=== PATIENT | female | born 1965 | race American Indian/Alaskan Native ===

== ENCOUNTER 2017-01-04 15:54 | Emergency (ER) | payer OTHER ==
[2017-01-04 16:30] VITALS: BP 127/93
--- NOTE | 2017-01-04 16:52 | XRay Report ---
RIGHT ANKLE RADIOGRAPHS INDICATION: Fall, right ankle injury. Patient rolled right ankle 3 days ago. COMPARISON: None similar. FINDINGS: AP, lateral and oblique right ankle radiographs demonstrate distal fibular fracture(s) approximately 2.6 cm proximal to its tip with cortical offset of 2-3 mm and possible extending to the distal tibiofibular joint. Mild to moderate ankle soft tissue swelling, lateral more than medial. Approximately 4 mm curvilinear density also incidentally seen inferior to the medial malleolus, presumed old posttraumatic or degenerative. Preserved ankle mortise and talar dome contour. Approximately 8mm prominent posterior talar process or ossicle. CONCLUSION: Right distal fibular fracture and ankle soft tissue swelling with few other findings, as above. Please correlate. Thank you for the opportunity to participate in this patient's care.
[2017-01-04] MEDS ORDERED: TORADOL IM ONE (17:06)
--- NOTE | 2017-01-04 17:13 | Emergency Department Report ---
HPI - General Chief Complaint: Extremity Injury, Lower Time Seen by Provider: 01/04/17 17:03 - HPI HPI: Patient is a 51-year-old female presents to ED complaining of right ankle pain 3 days. Patient states she was walking down the heel on Wednesday when she slipped and twisted her right ankle. Patient stated pain is gone progressively worse since Wednesday. Patient states difficulty and pain with weightbearing on the right leg. Patient denies fever/chills/nausea/vomiting since abdominal pain status post loss of sensation and leg/chest pain/calf tenderness ED Past Medical Hx - Past Medical History Previous Medical History?: Yes Hx Hypertension: Yes Hx Congestive Heart Failure: No Hx Diabetes: No Hx GERD: Yes Hx Asthma: No Hx COPD: No Additional medical history: depression. anxiety - Surgical History Past Surgical History?: Yes Additional Surgical History: bladder mesh 2011. right foot- bunyon removed - Social History Smoking Status: Never Smoker Substance Use Type: Non Opiate Pain, Prescribed - Medications Home Medications: Home Medications Medication Instructions Recorded Confirmed Last Taken Type Omeprazole [PriLOSEC] 1 tab PO QDAY 12/24/13 12/24/13 12/23/13 14:00 History amLODIPine [Norvasc] 1 tab PO QDAY 12/24/13 12/24/13 12/23/13 14:00 History Ciprofloxacin HCl [Ciprofloxacin 500 mg PO Q12HR #14 tab 10/31/15 Unknown Rx TAB] HYDROcodone/APAP 5-325 [Jackson 1 each PO Q6HR PRN #20 tablet 01/04/17 Unknown Rx 5/325] Ibuprofen [Motrin 800 MG tab] 800 mg PO Q8HR PRN #30 tablet 01/04/17 Unknown Rx ED Review of Systems ROS: Stated complaint: FALL/RT FOOT PAIN Other details as noted in HPI Constitutional: denies: chills, fever Eyes: denies: eye pain, eye discharge, vision change ENT: denies: ear pain, throat pain Respiratory: denies: cough, shortness of breath, wheezing Cardiovascular: denies: chest pain, palpitations Endocrine: no symptoms reported Gastrointestinal: denies: abdominal pain, nausea, diarrhea Genitourinary: denies: urgency, dysuria, discharge Musculoskeletal: arthralgia, myalgia. denies: back pain, joint swelling Skin: denies: rash, lesions Neurological: denies: headache, weakness, numbness, paresthesias, confusion Psychiatric: denies: anxiety, depression Hematological/Lymphatic: denies: easy bleeding, easy bruising Physical Exam - Physical Exam Vital Signs: Vital Signs 01/04/17 16:27 Temperature 98.3 F Pulse Rate 69 Respiratory 18 Rate Blood Pressure 127/93 O2 Sat by Pulse 100 Oximetry Physical Exam: GENERAL: Alert and oriented x3, no apparent distress, Normal Gait, atraumatic. HEAD: Head is normocephalic and a-traumatic. EYES: Extra ocular muscles are intact. Pupils are equal, round, and reactive to light and accommodation. NECK: Supple. Non edematous, No carotid bruits. No lymphadenopathy or thyromegaly. No C-spine tenderness LUNGS: Symetrical with respiration, No wheezing, no rales or crackles, CTAB. HEART: S1, S2 present, regular rate and rhythm without murmur, no rubs, no gallops. EXTREMITIES/MUSCULOSKELETAL: No cyanosis, clubbing, rash, lesions or edema. Full ROM bilaterally. LE Pulses 2+ bilaterally. LE 5+ strength bilaterally, tenderness to palpation of the lateral aspect of the right ankle region. Mild tissue swelling observed. No ecchymoses. NEUROLOGIC: No focal Deficit, Cranial nerves II through XII are grossly intact. No loss of sensation, PSYCHIATRIC: Mood is congruent with affect, denies suicidal or homicidal ideations. SKIN: Warm and dry, No lesions, No ulceration or induration present. ED Course Vital Signs 01/04/17 16:27 Temperature 98.3 F Pulse Rate 69 Respiratory 18 Rate Blood Pressure 127/93 O2 Sat by Pulse 100 Oximetry ED Medical Decision Making - Radiology Data Radiology results: report reviewed, image reviewed luoro Time In Minutes: RIGHT ANKLE RADIOGRAPHS INDICATION: Fall, right ankle injury. Patient rolled right ankle 3 days ago. COMPARISON: None similar. FINDINGS: AP, lateral and oblique right ankle radiographs demonstrate distal fibular fracture(s) approximately 2.6 cm proximal to its tip with cortical offset of 2-3 mm and possible extending to the distal tibiofibular joint. Mild to moderate ankle soft tissue swelling, lateral more than medial. Approximately 4 mm curvilinear density also incidentally seen inferior to the medial malleolus, presumed old posttraumatic or degenerative. Preserved ankle mortise and talar dome contour. Approximately 8mm prominent posterior talar process or ossicle. CONCLUSION: Right distal fibular fracture and ankle soft tissue swelling with few other findings, as above. Please correlate. Thank you for the opportunity to participate in this patient's care. Transcribed By: RS Dictated By: YUDY DUBOIS MD Electronically Authenticated By: YUDY DUBOIS MD Signed Date/Time: 01/04/17 3290 - Medical Decision Making 51-year-old female presents with distal fibular fracture closed ED course: Patient received pain medication while in the ED. X-ray of the leg shows right distal fibular fracture and ankle soft tissue swelling, see above Discussed the patient to follow up with orthopedist as referred. Posterior long splint was applied to the right foot. Post evaluation of right foot after splint shows no neurovascular deficit. Patient able to wiggle her toes. No loss of sensation. Capillary refill present 2 seconds Critical care attestation.: If time is entered above; I have spent that time in minutes in the direct care of this critically ill patient, excluding procedure time. ED Disposition Clinical Impression: Fracture of distal end of fibula Qualifiers: Encounter type: initial encounter Fracture type: closed Fracture morphology: other fracture Laterality: right Qualified Code(s): S82.831A - Other fracture of upper and lower end of right fibula, initial encounter for closed fracture Disposition: DISCHARGED TO HOME OR SELFCARE Is pt being admited?: No Does the pt Need Aspirin: No Condition: Stable Instructions: Ankle Fracture (ED), Leg Fracture (ED), RICE Therapy (ED) Prescriptions: HYDROcodone/APAP 5-325 [Jackson 5/325] 1 each PO Q6HR PRN #20 tablet PRN Reason: Pain Ibuprofen [Motrin 800 MG tab] 800 mg PO Q8HR PRN #30 tablet PRN Reason: Pain Referrals: JYOTI JANE MD [Staff Physician] - 3-5 Days LEIA SAAVEDRA MD [Staff Physician] - 3-5 Days Forms: Accompanied Note, Work/School Release Form(ED) Time of Disposition: 17:28
== END 2017-01-04 18:01 | disposition home or self-care (01) ==
LOC: ED 15:54
DX: S82.831A Other fracture of upper and lower end of right fibula, initial encounter for closed fracture (principal); I10 Essential (primary) hypertension; K21.9 Gastro-esophageal reflux disease without esophagitis; F32.9 Major depressive disorder, single episode, unspecified; F41.9 Anxiety disorder, unspecified; W18.49XA Other slipping, tripping and stumbling without falling, initial encounter; Y93.89 Activity, other specified; Y92.89 Other specified places as the place of occurrence of the external cause; Y99.8 Other external cause status; Z88.8 Allergy status to other drugs, medicaments and biological substances
CPT/HCPCS: 29505; 73610; 96372; 99284; J1885

== ENCOUNTER 2018-06-01 22:19 | Emergency (ER) | payer SELFPAY ==
[2018-06-01 22:38] VITALS: BP 178/88
== END 2018-06-01 22:35 | disposition left against medical advice (07) ==
LOC: ED 22:19
DX: M25.511 Pain in right shoulder (principal); M54.2 Cervicalgia; Z53.21 Procedure and treatment not carried out due to patient leaving prior to being seen by health care provider